=== PATIENT | male | born 1985 | race Hispanic/Latino ===

== ENCOUNTER 2016-12-01 16:23 | Emergency (ER) | payer OTHER ==
[2016-12-01 16:23] VITALS: BMI 42.5
[2016-12-01 17:08] VITALS: RESP 18; TEMP 98.2
--- NOTE | 2016-12-01 17:50 | ED PDOC ---
Arrival/HPI - General Historian: Patient - History of Present Illness Time/Duration: 1 hour Symptom Onset: Sudden Symptom Course: Unchanged Quality: Aching, Cramping Severity Level: 6 Activities at Onset: Significant Context: Work - General Chief Complaint: Lower Extremity Problem/Injury Time Seen by Provider: 12/01/16 16:57 - History of Present Illness Narrative History of Present Illness (Text): 12/01/16 17:47 This is a 31Y M with no PMH here for sudden R leg pain x 1 hour. Patient was at work lifting an air conditioner. He bent down and felt a spasm in his R thigh. He did not hear a pop or have any trauma. He is now having some numbness/ tingling in his r posterior thigh and R lateral foot. He denies loss of bowel or bladder function, back pain, CP, SOB, n/v/d. (Arely Winters) Past Medical History - Provider Review Nursing Documentation Reviewed: Yes - Infectious Disease Hx of Infectious Diseases: None - Tetanus Immunization Tetanus Immunization: Unknown - Psychiatric Hx Depression: No Hx Emotional Abuse: No Hx Physical Abuse: No Hx Substance Use: No - Past Surgical History Past Surgical History: No Previous - Anesthesia Hx Anesthesia: No Hx Anesthesia Reactions: No Hx Malignant Hyperthermia: No - Suicidal Assessment Feels Threatened In Home Enviroment: No Family/Social History - Physician Review Nursing Documentation Reviewed: Yes Family/Social History: Other (L5/S1 fusion ) Smoking Status: Never Smoked Hx Alcohol Use: No Hx Substance Use: No Hx Substance Use Treatment: No Allergies/Home Meds Allergies/Adverse Reactions: Allergies No Known Allergies Allergy (Verified 10/07/13 12:20) Review of Systems - Physician Review All systems were reviewed & negative as marked: Yes - Review of Systems Constitutional: Normal. absent: Fatigue, Fevers Respiratory: Normal. absent: SOB Cardiovascular: Normal. absent: Chest Pain, Palpitations Gastrointestinal: Normal, Other (no incontinence ). absent: Abdominal Pain, Diarrhea, Nausea, Vomiting Genitourinary Male: Normal. absent: Frequency, Urinary Output Changes Musculoskeletal: Myalgias. absent: Back Pain, Neck Pain, Joint Swelling Skin: Normal. absent: Rash, Pruritis Neurological: absent: Headache, Dizziness, Seizure Physical Exam Vital Signs Reviewed: Yes Temperature: Afebrile Blood Pressure: Normal Pulse: Regular Respiratory Rate: Normal Appearance: Positive for: Well-Appearing, Non-Toxic, Comfortable Pain Distress: None Mental Status: Positive for: Alert and Oriented X 3 - Systems Exam Head: Present: Atraumatic, Normocephalic Pupils: Present: PERRL Extroacular Muscles: Present: EOMI Conjunctiva: Present: Normal Mouth: Present: Moist Mucous Membranes Neck: Present: Normal Range of Motion Respiratory/Chest: Present: Clear to Auscultation, Good Air Exchange. No: Respiratory Distress, Accessory Muscle Use Cardiovascular: Present: Regular Rate and Rhythm, Normal S1, S2. No: Murmurs Abdomen: Present: Normal Bowel Sounds. No: Tenderness, Distention, Peritoneal Signs Back: Present: Normal Inspection, Pain with Leg Raise (on R ). No: Paraspinal Tenderness Upper Extremity: Present: Normal Inspection. No: Cyanosis, Edema Lower Extremity: Present: Normal Inspection. No: Edema Neurological: Present: GCS=15, CN II-XII Intact, Speech Normal, Other (numbness in posterior R thigh and L lateral foot ) Skin: Present: Warm, Dry, Normal Color. No: Rashes Psychiatric: Present: Alert, Oriented x 3, Normal Insight, Normal Concentration Vital Signs Temp Pulse Resp BP Pulse Ox 12/01/16 18:52 69 18 138/79 100 12/01/16 17:05 98.2 F 75 18 143/80 99 Medical Decision Making Re-evaluation Time: 18:24 Reassessment Condition: Improved ED Course and Treatment: 12/01/16 17:53 Impression: This is a 31Y M with no PMH with sudden R leg pain at work while bending down with air conditioner in his hands. Patient has numbness/tingling in S1 nerve distribution. DDX: muscle spasm, sciatica Plan: -- Motrin, Flexeril --Reassess Prior Visits: Notes and results from previous visits were reviewed. Discharge Instructions: Re-evaluation. Patient feels better. Discussed results and plan with patient who expresses understanding. All questions answered and there is agreement with the plan to discharge home with instructions. Patient stable for discharge. Return if symptoms persist or worsen. (Arely Winters) In agreement with resident note, which includes further HPI details. Patient was seen and evaluated with resident, came up with plan and treatment together. (Maurice Sandoval DO) - Medication Orders Current Medication Orders: Discontinued Medications Cyclobenzaprine HCl (Flexeril) 10 mg PO STAT STA Stop: 12/01/16 17:28 Last Admin: 12/01/16 18:33 Dose: 10 mg Ibuprofen (Motrin Tab) 600 mg PO STAT STA Stop: 12/01/16 17:28 Last Admin: 12/01/16 18:34 Dose: 600 mg Ibuprofen (Motrin Tab) Confirm Administered Dose 600 mg .ROUTE .STK-MED ONE Stop: 12/01/16 17:53 Last Admin: 12/01/16 18:52 Dose: Disposition/Present on Arrival - Present on Arrival Any Indicators Present on Arrival: No History of DVT/PE: No History of Uncontrolled Diabetes: No Urinary Catheter: No History of Decub. Ulcer: No History Surgical Site Infection Following: None - Disposition Have Diagnosis and Disposition been Completed?: Yes Disposition Time: 18:23 Patient Plan: Discharge - Disposition Diagnosis: Sciatic leg pain Disposition: HOME/ ROUTINE Condition: GOOD Discharge Instructions (ExitCare): Sciatica (ED), Piriformis Syndrome (ED), Back Exercises (ED) Print Language: OCCITAN Additional Instructions: Mr. Flores, thank you for letting us take care of you today. Your provider was Dr. Winters. You were treated for sciatic pain. The emergency medical care you received today was directed at your acute symptoms. If you were prescribed any medication, please fill it and take as directed. It may take several days for your symptoms to resolve. Return to the Emergency Department if your symptoms worsen, do not improve, or if you have any other problems. Please contact your doctor or call one of the physicians/clinics you have been referred to that are listed on the Patient Visit Information form that is included in your discharge packet. Bring any paperwork you were given at discharge with you along with any medications you are taking to your follow up visit. Our treatment cannot replace ongoing medical care by a primary care provider (PCP) outside of the emergency department. Thank you for allowing the [facility] team to be part of your care today. Please follow up with PMD in 1 week. Prescriptions: Cyclobenzaprine [Cyclobenzaprine HCl] 10 mg PO TID PRN #15 tab PRN Reason: Pain, Moderate (4-7) Ibuprofen [Motrin] 600 mg PO Q6H PRN #20 tab PRN Reason: Pain, Mild (1-3) Referrals: PCP,NO [Primary Care Provider] - Follow up with primary Forms: WORK NOTE
[2016-12-01 18:52] VITALS: BP 138/79; PULSE 69; O2SAT 100
== END 2016-12-01 19:00 | disposition home or self-care (01) ==
LOC: ED 16:23
DX: M54.30 Sciatica, unspecified side (principal); M79.604 Pain in right leg